=== PATIENT | male | born 1955 | race Caucasian/White ===

== ENCOUNTER 2017-01-01 09:56 | Emergency (ER) | payer MEDICAID ==
[~2017-01-01] VITALS: Ht 188 cm; Wt 88.0 kg
[2017-01-01 10:08] VITALS: BP 182/113
[2017-01-01] MEDS ORDERED: SODIUM CHLORIDE 0.9% 1,000 ML IV ONE (10:32)
[2017-01-01] MEDS ORDERED: MAALOX/HYOSCYAMINE/LIDOCAINE 45 ML BTL ONE (10:33)
[2017-01-01 10:53] LABS: HEMATOCRIT 46.3 % (39.2-51.8); HEMOGLOBIN 15.7 g/dL (13.7-18.0); WHITE BLOOD COUNT 6.5 x10^3/uL (3.4-10)
[2017-01-01] MEDS ORDERED: MAALOX/HYOSCYAMINE/LIDOCAINE 45 ML BTL PO ONE (11:00)
[2017-01-01] MEDS ORDERED: SODIUM CHLORIDE FLUSH 10ML SYR IVF ONE (11:00)
[2017-01-01 11:05] LABS: ASPARTATE AMINO TRANSFERASE 19 U/L (15-37); BLOOD UREA NITROGEN 11 mg/dL (7-18)
[2017-01-01 11:21] LABS: IS PT STATUS REG ER OR PRE ER? YES
== END 2017-01-01 13:18 | disposition home or self-care (01) ==
LOC: ED 12:55
DX: K29.00 Acute gastritis without bleeding (principal); R07.9 Chest pain, unspecified; I10 Essential (primary) hypertension; I25.10 Atherosclerotic heart disease of native coronary artery without angina pectoris; I25.2 Old myocardial infarction
CPT/HCPCS: 36415; 71010; 76700; 80053; 83690; 83880; 84484; 85025; 93005; 99285; J7030

== ENCOUNTER 2019-06-21 11:54 | Outpatient (CLI) | payer MEDICARE ==
[2019-06-21 12:23] LABS: BASOPHILS # (AUTO) 0.04 x10^3/uL (0-0.1); BASOPHILS % (AUTO) 1 % (0-1); EOSINOPHILS # (AUTO) 0.21 x10^3/uL (0-0.4); EOSINOPHILS % (AUTO) 4 % (1-7); LYMPHOCYTES % (AUTO) 20 % (22-44); MD NO; MEAN CORPUSCULAR HEMOGLOBIN 30.8 pg (27.5-34.5); MEAN CORPUSCULAR HGB CONC 33.9 g/dL (33.2-36.2); MEAN CORPUSCULAR VOLUME 91.1 fL (81-97); MEAN PLATELET VOLUME 8.5 fL (7.4-10.4); MONOCYTES % (AUTO) 10 % (2-9); NEUTROPHILS # (AUTO) 4.06 x10^3/uL (1.8-6.8); NEUTROPHILS % (AUTO) 66 % (42-75); PLATELET COUNT 227 x10^3/uL (130-400); RED BLOOD COUNT 5.06 x10^6/uL (4.38-5.82); RED CELL DISTRIBUTION WIDTH 13.9 % (9.4-14.8)
[2019-06-21 12:32] LABS: ALBUMIN 3.3 g/dL (3.4-5.0); ANION GAP 6 mmol/L (5-15); CHLORIDE 105 mmol/L (98-107)
[2019-06-21 12:57] LABS: ALANINE AMINOTRANSFERASE 22 U/L (12-78); ALKALINE PHOSPHATASE 104 U/L (45-117); BILIRUBIN,TOTAL 0.7 mg/dL (0.2-1.0); CHOLESTEROL, TOTAL 259 mg/dL (140-239); CREATININE 1.24 mg/dL (0.7-1.3); FREE T4 (FREE THYROXINE) 1.08 ng/dL (0.76-1.46); HDL CHOL % 25 % (26-37); HDL CHOLESTEROL (DIRECT) 65 mg/dL (40-60); LDL CHOLESTEROL,CALCULATED 162 mg/dL (54-169); LDL/HDL RATIO 2.5 (0.5-3.0); TOTAL PROTEIN 7.2 g/dL (6.4-8.2); TRIGLYCERIDES 160 mg/dL (50-200); VLDL CHOLESTEROL 32 mg/dL (0-25)
== END 2019-06-21 23:59 | disposition home or self-care (01) ==
LOC: LAB 11:54
PROVIDERS: ATTEND Family Medicine
DX: I10 Essential (primary) hypertension (principal); E11.65 Type 2 diabetes mellitus with hyperglycemia; D51.3 Other dietary vitamin B12 deficiency anemia; E55.9 Vitamin D deficiency, unspecified; E78.5 Hyperlipidemia, unspecified; R53.83 Other fatigue
CPT/HCPCS: 36415; 80053; 80061; 82043; 82306; 82570; 82607; 83036; 84439; 84443; 85025

== ENCOUNTER 2019-10-07 11:02 | Emergency (ER) | payer MEDICARE ==
[~2019-10-07] VITALS: Ht 188 cm; Wt 87.5 kg
[2019-10-07 11:04] VITALS: BP 195/104
--- NOTE | 2019-10-07 12:08 | NUR ---
ERP TO BEDSIDE.
--- NOTE | 2019-10-07 12:12 | NUR ---
THIS PT DROVE HIMSELF IN AFTER HE WOKE UP WITH HIS EARLOBE BLEEDING AND IT HAS YET TO STOP. HE FIRST NOTICED SOMETHING ON HIS EAR ABOUT A MONTH AGO, AND STATES HE RUBBED HIS FACE LAST NIGHT AND BELIEVES HE DISLODGED THE SCAB. THIS PT HAS A HISTORY TO HTN AND NORMALLY TAKES "3-4 THINGS I CAN'T REMEMBER" AND HAS NOT TAKEN ANY OF THE MEDS TODAY. PT ASKED IF A MEDICAION COULD CAUSE THIS BLEEDING WHEN EDUCATED ON DIFFERENT BLOOD THINNERS, PT STATED "I MIGHT BE TAKING PLAVIX, THAT SOUNDS FAMILIAR"
[2019-10-07] MEDS ORDERED: LIDOCAINE 1%-EPI 1:100K, 20ML ONE (12:16)
[2019-10-07] MEDS ORDERED: BUPIVACAINE/PF-EPI 0.25% 1:200K SQ ONE (12:30)
--- NOTE | 2019-10-07 12:39 | NUR ---
ERP TO BEDSIDE.
--- NOTE | 2019-10-07 12:59 | NUR ---
PT TOLD TO REST TODAY DUE TO HYPERTENSION. PT STATED THAT WITH HIS MEDS, HIS BP IS ABOUT 150S/ UNKNOWN.
== END 2019-10-07 13:01 | disposition home or self-care (01) ==
LOC: ED 12:12
DX: S01.322A Laceration with foreign body of left ear, initial encounter (principal); I10 Essential (primary) hypertension; I25.10 Atherosclerotic heart disease of native coronary artery without angina pectoris; I25.2 Old myocardial infarction; X58.XXXA Exposure to other specified factors, initial encounter; Y93.89 Activity, other specified; Y92.89 Other specified places as the place of occurrence of the external cause; Y99.8 Other external cause status
CPT/HCPCS: 99281